=== PATIENT | male | born 1965 | race Caucasian/White ===

== ENCOUNTER 2017-09-19 20:11 | Emergency (ER) | payer MEDICAID ==
[2017-09-19] MEDS ORDERED: NS 1,000 ML IV ONE (20:43)
[2017-09-19 20:47] LABS: PLATELET COUNT 330 10^3/uL (150-400)
[2017-09-19 20:48] VITALS: TEMP 98.8
--- NOTE | 2017-09-19 21:00 | EDPHY ---
H & P Stated Complaint: confusion, incontinence Time Seen by Provider: 09/19/17 20:55 HPI/ROS: CHIEF COMPLAINT: Confusion HISTORY OF PRESENT ILLNESS: Patient is brought to the emergency department tonight after he was found wandering the streets. The patient himself is unable to give much history however does have medication from [facility] where he was discharged today. I was able to access the [facility] system and find that the patient was hospitalized with pneumonia from September 16 through . During that time he was noted to be chronically encephalopathic. The patient had an extensive workup including a CT of the brain, CTA of the head neck and a lumbar puncture. The patient reportedly had been seen several times at [facility] with similar presentation. He has a history of a chronically abnormal MRI secondary to possible drug use, carbon monoxide poisoning or remote infection. The patient reportedly was discharged with a plan to stay with his mother in December. It is uncertain how the patient arrived in [place]. REVIEW OF SYSTEMS: A comprehensive 10 point review of systems is otherwise negative aside from elements mentioned in the history of present illness. - Personal History Current Tetanus/Diphtheria Vaccine: Unsure Current Tetanus Diphtheria and Acellular Pertussis (TDAP): Unsure - Medical/Surgical History Hx Asthma: No Hx Chronic Respiratory Disease: No Hx Diabetes: No Hx Cardiac Disease: No Hx Renal Disease: No Hx Cirrhosis: No Hx Alcoholism: No Hx HIV/AIDS: No Hx Splenectomy or Spleen Trauma: No Other PMH: unknown, possible psych history - Social History Smoking Status: Former smoker - Physical Exam Exam: General Appearance: Disheveled Eyes: Pupils equal and round no pallor or injection ENT, Mouth: Mucous membranes moist Respiratory: There are no retractions, lungs are clear to auscultation Cardiovascular: Regular rate and rhythm Gastrointestinal: Abdomen is soft and nontender, no masses, bowel sounds normal Neurological: A&O, normal motor function, normal sensory exam, normal cranial nerves Skin: Warm and dry, no rashes Musculoskeletal: Neck is supple nontender Extremities: symmetrical, full range of motion Constitutional: Initial Vital Signs Temperature (C) 37.1 C 09/19/17 20:44 Heart Rate 85 09/19/17 20:44 Respiratory Rate 16 09/19/17 20:44 Blood Pressure 111/88 H 09/19/17 20:44 O2 Sat (%) 96 09/19/17 20:44 O2 Delivery Mode Room Air Allergies/Adverse Reactions: No Known Allergies Allergy (Unverified 09/19/17 20:48) Home Medications: Medication Instructions Recorded Augmentin 875 MG TAB (*) 09/19/17 Doxycycline Hyclate 09/19/17 Medical Decision Making ED Course/Re-evaluation: I reviewed the patient's past medical records. He was recently hospitalized with pneumonia. He has a history of chronic homelessness, encephalopathy and suspected malingering. The patient is not forthcoming with any reliable information in the emergency department. He is afebrile, nontoxic and well- appearing. Laboratory studies are unremarkable. I reviewed his extensive recent hospitalization including imaging studies, spinal tap, chest x-ray and laboratory studies. The patient was discharged from hospital today with instructions to find housing at a possible homeless longterm. I do not see an indication for admission at this point time. I do feel the patient can be discharged to the homeless longterm. - Data Points Laboratory Results: Laboratory Results 09/19/17 20:11 09/19/17 20:11 09/19/17 09/19/17 09/19/17 21:51 20:11 20:11 WBC 12.86 10^3/uL H 10^3/uL (3.80-9.50) RBC 4.84 10^6/uL 10^6/uL (4.40-6.38) Hgb 15.0 g/dL g/dL (13.7-17.5) Hct 44.3 % % (40.0-51.0) MCV 91.5 fL fL (81.5-99.8) MCH 31.0 pg pg (27.9-34.1) MCHC 33.9 g/dL g/dL (32.4-36.7) RDW 12.9 % % (11.5-15.2) Plt Count 330 10^3/uL 10^3/uL (150-400) MPV 8.8 fL fL (8.7-11.7) Neut % (Auto) 74.4 % H % (39.3-74.2) Lymph % (Auto) 12.9 % L % (15.0-45.0) L[place]kin % (Auto) 9.3 % % (4.5-13.0) Eos % (Auto) 1.6 % % (0.6-7.6) Baso % (Auto) 0.7 % % (0.3-1.7) Nucleat RBC Rel Count 0.0 % % (0.0-0.2) Absolute Neuts (auto) 9.58 10^3/uL H 10^3/uL (1.70-6.50) Absolute Lymphs (auto) 1.66 10^3/uL 10^3/uL (1.00-3.00) Absolute Monos (auto) 1.19 10^3/uL H 10^3/uL (0.30-0.80) Absolute Eos (auto) 0.20 10^3/uL 10^3/uL (0.03-0.40) Absolute Basos (auto) 0.09 10^3/uL 10^3/uL (0.02-0.10) Absolute Nucleated RBC 0.00 10^3/uL 10^3/uL (0-0.01) Immature Gran % 1.1 % % (0.0-1.1) Immature Gran # 0.14 10^3/uL H 10^3/uL (0.00-0.10) Sodium 140 mEq/L mEq/L (135-145) Potassium 5.1 mEq/L mEq/L (3.5-5.2) Chloride 98 mEq/L mEq/L (97-110) Carbon Dioxide 33 mEq/l H mEq/l (22-31) Anion Gap 9 mEq/L mEq/L (8-16) BUN 23 mg/dL mg/dL (7-23) Creatinine 0.9 mg/dL mg/dL (0.7-1.3) Estimated GFR > 60 Glucose 114 mg/dL H mg/dL (70-100) Calcium 10.0 mg/dL mg/dL (8.5-10.4) Urine Opiates Screen NEGATIVE (NEGATIVE) Urine Barbiturates NEGATIVE (NEGATIVE) Ur Phencyclidine Scrn NEGATIVE (NEGATIVE) Ur Amphetamine Screen NEGATIVE (NEGATIVE) U Benzodiazepines Scrn NEGATIVE (NEGATIVE) Urine Cocaine Screen NEGATIVE (NEGATIVE) U Marijuana (THC) Screen NEGATIVE (NEGATIVE) Medications Given: Discontinued Medications Sodium Chloride (Ns) 1,000 mls @ 0 mls/hr IV EDNOW ONE; Wide Open PRN Reason: Protocol Stop: 01/12/18 20:44 Last Admin: 09/19/17 20:54 Dose: 1,000 mls Departure - Departure Disposition: Home, Routine, Self-Care Clinical Impression: Pneumonia, Homeless Condition: Good Instructions: Bacterial Pneumonia (ED) Additional Instructions: 1. Take antibiotics as directed. 2. You have been given the contact information for [facility] if you wish to establish local primary care. Referrals: [facility],. [Clinic] - As per Instructions
[2017-09-19 22:55] VITALS: BP 111/82; PULSE 88; RESP 17; O2SAT 98
== END 2017-09-19 22:53 | disposition home or self-care (01) ==
DX: J18.9 Pneumonia, unspecified organism (principal); E86.9 Volume depletion, unspecified; Z59.0 Homelessness; Z87.891 Personal history of nicotine dependence
CPT/HCPCS: 80305

== ENCOUNTER 2017-09-20 08:01 | Emergency (ER) | payer MEDICAID ==
--- NOTE | 2017-09-20 08:45 | EDPHY ---
H & P Stated Complaint: diarrhea Time Seen by Provider: 09/20/17 08:03 HPI/ROS: CHIEF COMPLAINT: "I shit myself " HISTORY OF PRESENT ILLNESS: 52-year-old male arrives via ambulance from the homeless long term stating that he had 3 episodes of diarrhea this morning. Not described as incontinence but does describe that he was unable to get the bathroom in a timely manner. He has no complaints of pain. He denies abdominal pain, denies fever chills, denies back or flank pain, denies urinary abnormality or decreased urine output. No melena or hematochezia. No untreated water sources. Patient was seen in the ER yesterday for confusion after he was found wandering the streets. He has recent hospitalizations at [facility] for pneumonia. He currently denies respiratory complaints, denies dyspnea, denies chest pain, denies headache. REVIEW OF SYSTEMS: A ten point review of systems was performed and is negative with the exception of the items mentioned in the HPI PAST MEDICAL & SURGICAL HISTORY: No pertinent medical or surgical history SOCIAL HISTORY: Homeless. [ PHYSICAL EXAM (Prior to examination, patient consented to physical exam, hands were washed and my usual and customary physical exam procedures followed) 1) GENERAL: Well-developed, well-nourished, alert and oriented to person place time events Appears to be in no acute distress. He is answering questions appropriately Sleeping, easily woken 2) HEAD: Normocephalic, atraumatic 3) HEENT: Pupils equal, round, reactive to light bilaterally. Sclera anicteric. Nasopharynx, oropharynx, clear, no lesions. Moist mucous membrane Ears bilaterally with normal tympanic membranes. 4) NECK: Full range of motion, no meningeal signs. 5) LUNGS: Clear auscultation bilaterally, no wheezes, no rhonchi, no retractions. 6) HEART: Regular rate and rhythm, no murmur, no heave, no gallop. 7) ABDOMEN: No guarding, no rebound, no focal tenderness, negative McBurney's, negative Angel's, negative Rovsing's, negative peritoneal sign, I am unable to elicit any abdominal pain on exam 8) MUSCULOSKELETAL: Moving all extremities, no focal areas of tenderness, no obvious trauma. No peripheral edema or discoloration. 9) BACK: No CVA tenderness, no midline vertebral tenderness, no fluctuance, no step-off, no obvious trauma, no visual or palpable abnormality. 10) SKIN: No rash, no petechiae. 11) Psychiatric: Patient is oriented X 3, there is no agitation. DIFFERENTIAL DIAGNOSIS: In no particular order including but not limited to infectious diarrhea, C diff colitis, acute appendicitis, dehydration, volume depletion - Personal History Current Tetanus/Diphtheria Vaccine: Unsure Current Tetanus Diphtheria and Acellular Pertussis (TDAP): Unsure - Medical/Surgical History Hx Asthma: No Hx Chronic Respiratory Disease: No Hx Diabetes: No Hx Cardiac Disease: No Hx Renal Disease: No Hx Cirrhosis: No Hx Alcoholism: No Hx HIV/AIDS: No Hx Splenectomy or Spleen Trauma: No Other PMH: unknown, possible psych history - Social History Smoking Status: Former smoker Constitutional: Initial Vital Signs Temperature (C) 36.8 C 09/20/17 08:03 Heart Rate 79 09/20/17 08:03 Respiratory Rate 16 09/20/17 08:03 Blood Pressure 111/53 L 09/20/17 08:03 O2 Sat (%) 97 09/20/17 08:03 O2 Delivery Mode Room Air Allergies/Adverse Reactions: No Known Allergies Allergy (Unverified 09/19/17 20:48) Home Medications: Medication Instructions Recorded Augmentin 875 MG TAB (*) 09/19/17 Doxycycline Hyclate 09/19/17 Medical Decision Making ED Course/Re-evaluation: 9:16 a.m. Old medical records reviewed on this patient. Serial examinations performed on patient. Observed ambulating with stable steady gait. He is currently answering questions appropriately no evidence of encephalopathy. He has no respiratory complaints, lungs are clear bilaterally, maintain normal saturations parent a orourke is abdomen is soft no guarding or rebound. I requested a stool sample however he has been unable provide while in the ER. He is requesting food. At this time I do not identify emergent condition requiring intervention or diagnostic studies. I have reviewed his laboratory studies from last evening in the emergency department. He has moist mucous membranes hemodynamically stable. Doubt volume depletion/dehydration. Plan will be discharge, given [facility] follow-up information. Departure - Departure Disposition: Home, Routine, Self-Care Clinical Impression: Diarrhea Qualifiers: Diarrhea type: unspecified type Qualified Code(s): R19.7 - Diarrhea, unspecified Condition: Good Instructions: Acute Diarrhea (ED) Additional Instructions: Return to the emergency department if you develop abdominal pain, fevers, if you have a change in urine output or any other symptoms that concern you Referrals: [facility],. [Clinic] - 1-2 days without fail
[2017-09-20 09:31] VITALS: BP 111/72; PULSE 86; RESP 18; TEMP 98.1; O2SAT 96
== END 2017-09-20 09:27 | disposition home or self-care (01) ==
LOC: EDUNIT#
DX: R19.7 Diarrhea, unspecified (principal); Z87.891 Personal history of nicotine dependence

== ENCOUNTER 2017-09-21 22:39 | Emergency (ER) | payer MEDICAID ==
--- NOTE | 2017-09-21 22:42 | EDPHY ---
H & P HPI/ROS: HPI CHIEF COMPLAINT: Multiple complaints, diarrhea yesterday, wheezing, anxiety, reflux HISTORY OF PRESENT ILLNESS: This patient 52-year-old male, homeless, residing at a local snf presents emergency room by EMS with a constellation of complaints. Patient states his main complaint is he is feeling anxious. He states that he thought he heard himself wheezing at the snf. Additionally reports some heartburn burning sensation in his epigastric region and then up into his chest without any chest pain. He denies any shortness of breath or cough. He reports to me that he was recently in [place] and a hospital diagnosed with viral meningitis as well as recently in emergency room he thinks it may have been this 1 for diarrhea. He does state he smokes tobacco. He is alert and orient x4 he is mentating appropriately he answers my questions appropriately He states he decided come the emergency room as he felt anxious. I reviewed the ER visit from September [address] Cisco Dumont, additionally the ER visit from September 21 by Jennifer PICKERING. Patient neurological exam noted tonight to be at his baseline when I read the old records. He has chronic encephalopathy from either drug use versus carbon dioxide poisoning. He had a recent lumbar puncture that was negative at [facility], additionally he had extensive workup for encephalopathy. Past Medical History: Per the patient viral meningitis per the patient diarrhea , recent diagnosis of pneumonia from [facility]. Outside records reviewed from [facility]. Additionally our records reviewed from previous ER visit. Past Surgical History: No recent surgery Social History: Homeless, daily tobacco, occasional marijuana Family History: Noncontributory ROS REVIEW OF SYSTEMS: A comprehensive 10 point review of systems is otherwise negative aside from elements mentioned in the history of present illness. Exam Constitutional appears well nontoxic in no acute distress, triage nursing summary reviewed, vital signs reviewed, awake/alert. Eyes normal conjunctivae and sclera, EOMI, PERRLA. HENT normal inspection, atraumatic, moist mucus membranes, no epistaxis, neck supple/ no meningismus, no raccoon eyes. Respiratory clear to auscultation bilaterally, normal breath sounds, no respiratory distress, no wheezing. Cardiovascular rate normal, regular rhythm, no murmur, no edema, distal pulses normal. Gastrointestinal soft, non-tender, no rebound, no guarding, normal bowel sounds, no distension, no pulsatile mass. Genitourinary no CVA tenderness. Musculoskeletal no midline vertebral tenderness, full range of motion, no calf swelling, no tenderness of extremities, no meningismus, good pulses, neurovascularly intact. Skin pink, warm, & dry, no rash, skin atraumatic. Neurologic awake, alert and oriented x 3, AAOx3, moves all 4 extremities equally, motor intact, sensory intact, CN II-XII intact, normal cerebellar, normal vision, normal speech. Psychiatric normal mood/affect. Heme/Lymph/Immune no lymphadenopathy. Differential Diagnosis: Includes but not limited to in a particular order acute anxiety, dehydration, electrolyte disturbance, infection, reflux, GERD Medical Decision Making: Plan for this patient check basic blood work, EKG, GI cocktail to see if this improves his GERD like symptoms, and re-evaluate. Re-evaluation: 2316: Patient now states that he does not want anything done in the emergency room specifically does not want any blood draw or further evaluation. He would like to leave. I explained him that we have not done any medical evaluation for his multiple complaints. I explained that we should least given a GI cocktail to see if this improves and check blood work. However he has declined. He would like to leave the emergency room. He states that he feels fine. He has no chest pain or shortness of breath. His vital signs are stable. Given that he came to the emergency room by ambulance for multiple complaints and now is refusing medical workup he will need to sign out against medical advice. I did recommend release check blood work and check a mallet however he has declined. He would like to leave. He understands the risk of doing so. He has the mental capacity to do so as well. Source: Patient, EMS - Medical/Surgical History Hx Asthma: No Hx Chronic Respiratory Disease: No Hx Diabetes: No Hx Cardiac Disease: No Hx Renal Disease: No Hx Cirrhosis: No Hx Alcoholism: No Hx HIV/AIDS: No Hx Splenectomy or Spleen Trauma: No Other PMH: unknown, possible psych history - Social History Smoking Status: Former smoker Constitutional: Initial Vital Signs Temperature (C) 36.9 C 09/21/17 22:39 Heart Rate 74 09/21/17 22:39 Respiratory Rate 16 09/21/17 22:39 Blood Pressure 130/94 H 09/21/17 22:39 O2 Sat (%) 97 09/21/17 22:39 O2 Delivery Mode Room Air Allergies/Adverse Reactions: No Known Allergies Allergy (Unverified 09/19/17 20:48) Home Medications: Medication Instructions Recorded Augmentin 875 MG TAB (*) 09/19/17 Doxycycline Hyclate 09/19/17 Departure - Departure Disposition: Against Medical Advice Instructions: Gastritis (ED) Additional Instructions: 1. Return emergency room if you have worsening symptoms questions or concerns. 2 . If you change of mind about being seen I will be glad to evaluate you. Referrals: Patient,NotPresent [Primary Care Provider] - As per Instructions
[2017-09-21] MEDS ORDERED: HYOSCYAMINE SULFATE 0.125 MG TAB PO ONE (22:47)
[2017-09-21] MEDS ORDERED: MAG HYDROX/AL HYDROX/SIMETH 30 ML UDCUP PO ONE (22:47)
[2017-09-21] MEDS ORDERED: NS 1,000 ML IV ONE (22:47)
[2017-09-21] MEDS ORDERED: LIDOCAINE 2% VISCOUS 15 ML UDCUP PO ONE (22:47)
[2017-09-21 22:48] VITALS: BP 130/94; PULSE 74; RESP 16; TEMP 98.4; O2SAT 97
== END 2017-09-21 23:21 | disposition left against medical advice (07) ==
LOC: EDUNIT#
DX: F41.9 Anxiety disorder, unspecified (principal); Z87.891 Personal history of nicotine dependence

== ENCOUNTER 2017-09-23 18:20 | Emergency (ER) | payer MEDICAID ==
[2017-09-23 18:31] VITALS: BP 117/68; PULSE 88; RESP 17; TEMP 98.2; O2SAT 96
--- NOTE | 2017-09-23 18:54 | EDPHY ---
H & P Time Seen by Provider: 09/23/17 18:25 HPI/ROS: Chief complaint: Sore feet History of present illness: This is a 52-year-old male who presents to the emergency department with EMS for evaluation of sore feet. Reports his feet have been sore since he hiked down the side of the mouth on earlier today. He states he does not have socks. He denies other associated signs or symptoms including no direct trauma, no abnormal coolness or paresthesias in the feet. Smoking Status: Former smoker Physical Exam: General: Alert, nontoxic Skin: Abrasions to the feet bilaterally. Musculoskeletal: The feet are nontender to palpation. He is moving all digits in all lucero in both feet and both ankles in all lucero. Vascular: DP and PT pulses 2+. Capillary refill brisk in both feet. Neurologic: Sensation intact throughout the feet. Constitutional: Initial Vital Signs Temperature (C) 36.8 C 09/23/17 18:29 Heart Rate 88 09/23/17 18:29 Respiratory Rate 17 09/23/17 18:29 Blood Pressure 117/68 09/23/17 18:29 O2 Sat (%) 96 09/23/17 18:29 O2 Delivery Mode Room Air Allergies/Adverse Reactions: No Known Allergies Allergy (Unverified 09/19/17 20:48) Home Medications: Medication Instructions Recorded NK [No Known Home Meds] 09/23/17 MDM/Departure - [facility] ED Course/Re-evaluation: Patient seen under the supervision of my secondary supervising physician Dr. Talha Hoskins. Patient presents to the emergency department for sore feet. They are neurovascularly intact. He is discharged. Home care is discussed. Case management is notified of his multiple visits over the last few days. - Depart Disposition: Home, Routine, Self-Care Clinical Impression: Foot pain, bilateral Condition: Good Instructions: Acute Wounds (ED) Additional Instructions: Follow-up with the [facility] for continued evaluation and care If symptoms worsen or new symptoms develop return to the emergency room for recheck Referrals: NONE *PRIMARY CARE P,. [Primary Care Provider] - As per Instructions [facility],. [Clinic] - As per Instructions
== END 2017-09-23 19:15 | disposition home or self-care (01) ==
LOC: EDUNIT#
DX: M79.672 Pain in left foot (principal); M79.671 Pain in right foot; Z87.891 Personal history of nicotine dependence

== ENCOUNTER 2017-09-30 22:34 | Emergency (ER) | payer MEDICAID ==
--- NOTE | 2017-09-30 23:54 | EDPHY ---
H & P Stated Complaint: Sore feet HPI/ROS: HPI The patient presents with foot pain for the last several days. He is homeless, has been walking long distances. Both of his feet hurt. He has blisters on plantar surfaces. He does not have any fevers or chills. He does not have any warmth of his feet. He does not have any numbness or tingling. REVIEW OF SYSTEMS Constitutional: No fever, no chills. Musculoskeletal: No back pain. Skin: No rashes. Neurological: No headache. PMHx: Seen for similar complaints several days ago, bipolar disorder Soc Hx: Homeless, new to the area PHYSICAL General Appearance: Tired appearing Eyes: Pupils equal and round no pallor or injection ENT, Mouth: Mucous membranes moist Respiratory: Breathing comfortably Neurological: A&O, moves all extremities Skin: Warm and dry Extremities: Both feet are diffusely erythematous, 2+ DP pulses, warm to touch , sensation intact to light touch, bilateral plantar surfaces at the 2nd MTP to 4th MTP there are blisters which have drained, generally dirty with long toenails, symmetrical, full range of motion Psychiatric: Patient is oriented X 3, there is no agitation Source: Patient Exam Limitations: No limitations - Personal History Current Tetanus/Diphtheria Vaccine: Yes Tetanus Vaccine Date: 2016 - Medical/Surgical History Hx Asthma: No Hx Chronic Respiratory Disease: No Hx Diabetes: No Hx Cardiac Disease: No Hx Renal Disease: No Hx Cirrhosis: No Hx Alcoholism: No Hx HIV/AIDS: No Hx Splenectomy or Spleen Trauma: No Other PMH: bipolar d/o - Social History Smoking Status: Former smoker Constitutional: Initial Vital Signs Temperature (C) 37.2 C 09/30/17 22:59 Heart Rate 89 09/30/17 22:59 Respiratory Rate 16 09/30/17 22:59 Blood Pressure 122/72 H 09/30/17 22:59 O2 Sat (%) 95 09/30/17 22:59 O2 Delivery Mode Room Air Allergies/Adverse Reactions: No Known Allergies Allergy (Unverified 09/30/17 23:01) Home Medications: Medication Instructions Recorded GABAPENTIN 09/30/17 Medical Decision Making Differential Diagnosis: This is a 52-year-old homeless man who presents again to the emergency department with bilateral foot pain. On exam, he has normal vital signs, is not febrile, does have diffusely erythematous feet with blistering of the plantar surfaces. He has been walking long distances and appears to have poor hygiene of his feet. There is no sign of necrosis or frostbite. This does not appear to be infectious is there is no warmth or tenderness, I feel he is suffering from mild trench foot. I have discussed wound care with him. He does have access to a shower and I have recommended daily showers, antibiotic ointment, followed by clean socks daily. He is in agreement with this plan. Departure - Departure Disposition: Home, Routine, Self-Care Clinical Impression: Traumatic blister of foot Qualifiers: Encounter type: initial encounter Laterality: unspecified laterality Qualified Code(s): S90.829A - Blister (nonthermal), unspecified foot, initial encounter Condition: Good Instructions: Blister (ED) Additional Instructions: Please wash your feet daily. If you can soak them for 10 or 20 min that will help. You can use antibiotic ointment on your blisters. You then should put on clean socks and change them daily. Please avoid walking long distances if possible. Try to elevate your feet when you can. Referrals: [facility],. [Clinic] - As per Instructions
[2017-10-01 00:14] VITALS: BP 123/84; PULSE 67; RESP 19; TEMP 98.4; O2SAT 93
== END 2017-10-01 00:19 | disposition home or self-care (01) ==
LOC: EDUNIT#
DX: S90.822A Blister (nonthermal), left foot, initial encounter (principal); S90.821A Blister (nonthermal), right foot, initial encounter; Z87.891 Personal history of nicotine dependence; X58.XXXA Exposure to other specified factors, initial encounter